=== PATIENT | male | born 1985 | race Caucasian/White ===

== ENCOUNTER 2024-08-31 06:57 | Day surgery (SDC) | payer OTHER ==
[~2024-08-31] VITALS: Ht 177.8 cm; Wt 79.7 kg
[2024-08-31] VITALS (7 sets, daily range): BP systolic 111–124; BP diastolic 69–89; PULSE 62–84; RESP 12–20; TEMP 98.3; O2SAT 97–100
[~2024-08-31 06:57] MED LIST: IBUPROFEN PO; MULTIVITAMIN PO; ROLAIDS PO
[2024-08-31] MEDS: famotidine 20mg tablet PO ONE (08:13)
[2024-08-31] MEDS: ceFAZolin 2gm/dext,iso 50mL 50 ML IV ONE (08:14)
[2024-08-31] MEDS ORDERED: bacitracin 15gm ointment TP ONE (08:15)
[2024-08-31] MEDS: ringers solution, lacted 1,000 ML IV SCH ×2 (08:15→10:33)
[2024-08-31] MEDS ORDERED: BUPIVAcaine 2.5mg/ml inj 50ml vial (contains preservative) ONE (08:15)
[2024-08-31] MEDS ORDERED: morphine 2 MG/ML inj. syringe IV PRN (08:30)
[2024-08-31] MEDS ORDERED: ondansetron/PF 4mg/2ml inj IV PRN (08:30)
[2024-08-31] MEDS ORDERED: fentaNYL/PF 50MCG/1 ML 2ML syringe IV PRN ×2 (08:30)
[2024-08-31] MEDS ORDERED: labetalol 20mg/4ml (5mg/ml) syringe IV PRN (08:30)
[2024-08-31] MEDS ORDERED: morphine 4 MG/ML inj SYRINge IV PRN (08:30)
[2024-08-31 08:32] LABS: BILIRUBIN,URINE NEGATIVE (Neg); CLARITY,URINE CLEAR (Clear); COLOR,URINE YELLOW (Yellow); GLUCOSE, URINE NEGATIVE (Neg); KETONES,URINE NEGATIVE (Neg); LEUKOCYTE ESTERASE ,URINE NEGATIVE (Neg); NITRITES, URINE NEGATIVE (Neg); OCCULT BLOOD,URINE NEGATIVE (Neg); PROTEIN,URINE NEGATIVE (Neg); UROBILINOGEN,URINE 0.2 E.U/dL (0.2-1.0)
--- NOTE | 2024-08-31 08:33 | ANESTHESIA RECORDS ---
Nerve Block Providers to CC CC: MARJORIE CHAND DPM ~ Diagnosis: Nerve Block requested by: MARJORIE CHAND DPM Neuraxial/Peripheral Nerve Block requested for Post-operative analgesia by Physician above DIAGNOSIS: Post-operative pain. (Body Area) Shoulder: [ ] Arm: [ ] Hand: [ ] Hip: [ ] Knee: [ ] Ankle: [ Right ] Foot: [ ] Leg: [ ] Abdomen: [ ] Other: [ ] Post-operative pain expected to be/is inadequately managed by oral or IV medicines. Regional anesthetic expected to facilitate rehabilitation and/or discharge from facility. Other:[ _] Procedure Performed: Ankle Superficial Peroneal: Right Ankle Deep Peroneal: Right Ankle Sural & Sapenous Nerve: Right Time out Done?: Yes Time of Time out: 08:50 Procedure Details: PROCEDURE DETAILS: Risks, benefits and alternatives explained Informed consent obtained, and patient wishes to proceed Conscious sedation with indicated monitors Patient positioned, pertinent anatomy defined, sterile technique used Needle used: [ ] 3 1/8 inch Stimuplex Ultra 22ga [ ] 4 inch Stimuplex Ultra 20ga [ ] 6 inch Stimuplex Ultra 20ga [ ] 6 inch, [place] over the needle catheter set 20ga [ ] 4 inch [place] over the needle catheter set 20ga [ X]Other: [ ] Loss of twitch @ [ ]mA [ X] Single Injection [ ] Catheter Ultrasound Guidance Used: [ ] Yes [ X] No Attempts:[__1 ] Medicines injected: [ ]Clonidine Amt:[ ] [ X ]Dexamethasone Amt:[ ] [ X ]Ropivacaine Amt:[____0.5% 30 c.c ] [ ]Bupivacaine Amt:[ ] [ ]Lidocaine Amt:[ ] [ ]Exparel 1.33%:[ ] [ ]Epinephrine Amt[ ] [ ]Other: [ ] Intermittent aspiration during local anesthetic administration No symptoms of intraneural or intravenous injection Patient tolerated procedure well Comments Right ankle bone ,ligament, nerve pathways assesed. Local infiltration of all 5 nerve bundles. DAVID HART MD August 31, 2024 08:33
[2024-08-31 08:40] LABS: UA COLLECTION TYPE CLN CATCH MIDSTREAM
[2024-08-31 08:43] LABS: BASOPHILS % (AUTO) 0.7 % (0-1); EOSINOPHILS # (AUTO) 0.3 X10'3 (0-0.9); EOSINOPHILS % (AUTO) 7.1 % (0-6); LYMPHOCYTES # (AUTO) 1.4 X10'3 (1.1-4.8); LYMPHOCYTES % (AUTO) 29.2 % (21-51); MEAN CORPUSCULAR HEMOGLOBIN 30.2 PG (27.0-31.0); MEAN CORPUSCULAR VOLUME 88.7 FL (78-98); MEAN PLATELET VOLUME 7.3 FL (7.4-10.4); MONOCYTES # (AUTO) 0.4 X10'3 (0-0.9); NEUTROPHILS # (AUTO) 2.6 X10'3 (1.8-7.7); PRE OP HEMOGLOBIN 14.6 g/dL (14.0-17.9); PRE OP PLATELET COUNT 283 X10'3 (140-440); PRE OP WHITE BLOOD COUNT 4.8 10'3 (4.8-10.8); RED BLOOD COUNT 4.85 X10'6 (4.70-6.10)
[2024-08-31 08:51] LABS: ALBUMIN 3.9 G/DL (3.4-5.0); ALBUMIN/GLOBULIN RATIO 1.1 (1.1-1.5); ALKALINE PHOSPHATASE 97 IU/L (46-116); BLOOD UREA NITROGEN 25 MG/DL (7-18); BUN/CREATININE RATIO 22.9 (10.0-20.0); CALCIUM 8.7 MG/DL (8.5-10.1); CHLORIDE 104 MMOL/L (99-107); CREATININE 1.09 MG/DL (0.60-1.10); PRE OP ALT 26 U/L (30-65); PRE OP ANION GAP 11 (8-16); PRE OP AST 17 U/L (10-37); PRE OP BILIRUB, TOTAL 0.2 MG/DL (0.0-1.0); PRE OP GLUCOSE 105 MG/DL (70-104); PRE OP POTASSIUM 3.9 MMOL/L (3.4-5.1); PRE OP SODIUM 141 MMOL/L (135-145); TOTAL CARBON DIOXIDE 26.5 MMOL/L (24-32); TOTAL PROTEIN 7.4 G/DL (6.4-8.2); eCRCL 96 ML/MIN; eGFR 76 ML/MIN
[2024-08-31] MEDS ORDERED: fentaNYL/PF 50MCG/1 ML 2ML syringe ONE ×2 (08:52→14:30)
[2024-08-31] MEDS ORDERED: midazolam 1 mg/ML 2ml injection ONE (08:52)
[2024-08-31] MEDS ORDERED: propofol inj 20 ML IV ONE (08:53)
[2024-08-31] MEDS ORDERED: ROPIVAcaine 0.5% (5mg/ml) 30ml vial ONE (08:54)
[2024-08-31] MEDS ORDERED: LIDOcaine 2% (20mg/ml) 5ml vial ONE (08:54)
[2024-08-31] MEDS ORDERED: acetaminophen 1,000mg/100ml IV 100 ML IV ONE (08:58)
[2024-08-31] MEDS ORDERED: ondansetron/PF 4mg/2ml inj ONE (08:59)
[2024-08-31] MEDS ORDERED: desflurane 240ml liquid inh. IH ONE (09:32)
[2024-08-31] MEDS ORDERED: ketorolac trometh 30MG/ML vial 30 MG/ML VIAL ONE (10:20)
[2024-08-31] MEDS: HYDROcodone/acetaminophen 10/325mg tab PO ONE (11:13)
== END 2024-08-31 11:37 | disposition home or self-care (01) ==
LOC: PAS 06:57
PROVIDERS: ATTEND Podiatrist Foot & Ankle Surgery
DX: M21.6X1 Other acquired deformities of right foot (principal); M65.871 Other synovitis and tenosynovitis, right ankle and foot; Z79.899 Other long term (current) drug therapy; Z98.890 Other specified postprocedural states; G89.18 Other acute postprocedural pain
CPT/HCPCS: 27696; 29891; 36415; 64450; 80053; 81003; 82948; 85025; A6222; C1713; J0131; J0690; J1100; J1885; J2003; J2250; J2405; J2704; J2795; J3010; J7120; L3260; Z7506; Z7508; Z7512; A4618; A6449; A7000; J3490